=== PATIENT | female | born 1970 | race Caucasian/White ===

== ENCOUNTER 2017-05-03 07:59 | Day surgery (SDC) | payer OTHER ==
[~2017-05-03] VITALS: Ht 162.6 cm; Wt 83.9 kg
[~2017-05-03 07:59] MED LIST: CEFAZOLIN SOD 1 GM/ ISO 50 ML PREMIX IV ONE
[2017-05-03] MEDS ORDERED: SEVOFLURANE 15 MIN GAS INH ONE (11:20)
[2017-05-03] MEDS ORDERED: fentaNYL CITRATE/PF 100 MCG/2 ML AMP IVP ONE (11:20)
[2017-05-03] MEDS ORDERED: MIVACURIUM CHLORIDE 20 MG/10 ML VIAL (MIVACRON) INJ ONE (11:20)
[2017-05-03] MEDS ORDERED: PROPOFOL 200MG/ 20ML VIAL (DIPRIVAN) IV ONE (11:20)
[2017-05-03] MEDS ORDERED: MIDAZOLAM HCL 5 MG/5 ML VIAL IVP ONE (11:20)
[2017-05-03] MEDS ORDERED: ONDANSETRON HCL 4 MG/2 ML VIAL IVP ONE (11:20)
[2017-05-03] MEDS ORDERED: LR 1,000 ML IV SCH (11:57)
[2017-05-03] MEDS ORDERED: MORPHINE 4 MG/ML INJ. SYRINGE IVP PRN ×3 (12:00)
[2017-05-03] MEDS ORDERED: METOCLOPRAMIDE HCL 10 MG/2 ML VIAL IVP PRN (12:00)
[2017-05-03] MEDS ORDERED: D5/0.45 NS 1,000 ML IV SCH (12:43)
[2017-05-03] MEDS ORDERED: HYDROmorphone 1 MG INJ. 1 MG/ML AMPUL IVP PRN (12:45)
[2017-05-03 14:03] VITALS: BP_SYST 135
[2017-05-03] MEDS ORDERED: HYDROcodone/ACETAMIN 5-325 MG TAB (NORCO/ VICODIN) ONE (14:22)
[2017-05-03] MEDS ORDERED: HYDROcodone/ACETAMIN 5-325 MG TAB (NORCO/ VICODIN) PO PRN ×2 (15:00)
== END 2017-05-03 15:10 | disposition home or self-care (01) ==
LOC: SDS 07:59 → SMU 08:00 → EDSTATUS 12:50 → SDS 15:10
PROVIDERS: ATTEND Colon & Rectal Surgery
DX: D24.2 Benign neoplasm of left breast (principal); R92.0 Mammographic microcalcification found on diagnostic imaging of breast; K21.9 Gastro-esophageal reflux disease without esophagitis; Z98.890 Other specified postprocedural states; D69.6 Thrombocytopenia, unspecified; I10 Essential (primary) hypertension; J34.2 Deviated nasal septum; J30.9 Allergic rhinitis, unspecified; Z68.31 Body mass index [BMI] 31.0-31.9, adult; Z79.899 Other long term (current) drug therapy; E66.01 Morbid (severe) obesity due to excess calories
CPT/HCPCS: 19081; 19101; 19281; 71045; 76098; 88305; 88307; J0690; J2250; J2405; J2704; J3010; J7120